=== PATIENT | male | born 1945 | race Caucasian/White ===

== ENCOUNTER 2020-10-03 13:51 | Emergency (ER) | payer MEDICARE ==
[~2020-10-03] VITALS: Ht 182.9 cm; Wt 75.0 kg
--- NOTE | 2020-10-03 14:15 | NUR ---
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 DENIES CP, SHOB, HEADACHE, LOC. SKIN INTACT. PATIENT UTILIZES CANE FOR AMBULATION. VSS, CALL RIGGINS WITHIN REACH, WILL CONTINUE TO MONITOR.
[2020-10-03] MEDS ORDERED: ACETAMINOPHEN 500 MG TABLET PO ONE (14:30)
[2020-10-03] MEDS ORDERED: PLEASE ENTER ALLERGIES MC SCH (15:00)
[2020-10-03] MEDS ORDERED: ACETAMINOPHEN 325 MG TABLET ONE (15:18)
[2020-10-03 18:04] VITALS: BP 121/74
== END 2020-10-03 18:22 | disposition home or self-care (01) ==
LOC: ED 15:14
DX: S80.12XA Contusion of left lower leg, initial encounter (principal); X58.XXXA Exposure to other specified factors, initial encounter; Y93.89 Activity, other specified; Y92.89 Other specified places as the place of occurrence of the external cause; Y99.8 Other external cause status
CPT/HCPCS: 99283